=== PATIENT | male | born 1995 | race Caucasian/White ===

== ENCOUNTER 2019-06-27 15:00 | Emergency (ER) | payer OTHER ==
[~2019-06-27] VITALS: Ht 172.7 cm; Wt 79.4 kg
[2019-06-27 15:19] LABS: URINE BILIRUBIN 2+ (Negative); URINE BLOOD NEGATIVE (Negative); URINE CLARITY CLEAR; URINE COLOR DARK YELLOW; URINE GLUCOSE-RANDOM NEGATIVE (Negative); URINE KETONES 3+ (Negative); URINE LEUKOCYTES-REFLEX NEGATIVE (Negative); URINE NITRITE-REFLEX NEGATIVE (Negative); URINE PROTEIN 2+ (Negative)
[2019-06-27 15:21] LABS: ICTOTEST (BILI CONFIRMATORY) Negative (Negative)
[2019-06-27 15:28] LABS: BACTERIA-REFLEX >30 Many /HPF (None Seen); CASTS None Seen /LPF (None Seen); CRYSTALS None Seen /LPF (None Seen); MUCUS >6 Heavy strn/LPF (None Seen); SQUAMOUS 0-3 Few /LPF (0-3); URINE RBC 0-2 Rare /HPF (0-2); URINE WBC-REFLEX 0-5 Rare /HPF (0-5)
[2019-06-27 15:28] LABS: ABSOLUTE BASOPHILS 0.1 thou/uL (0.0-0.2); ABSOLUTE LYMPHOCYTES 1.8 thou/uL (0.8-5.3); ABSOLUTE MONOCYTES 0.7 thou/uL (0.0-1.2); ABSOLUTE NEUTROPHILS 11.5 thou/uL (1.6-8.1); BASOPHILS 0.7 %; HEMATOCRIT 48.2 % (42.0-52.0); HEMOGLOBIN 16.8 gm/dL (14.0-18.0); LYMPHOCYTES 12.6 %; MCH 29.6 pg (26.0-34.0); MCHC 34.9 g/dL (28.0-37.0); MCV 84.7 fL (80.0-100.0); MONOCYTES 4.8 %; MPV 9.3 fl. (7.2-11.1); NUCLEATED RBCS 0 /100WBC; PLATELET COUNT* 288 thou/uL (150-400); POLYS 81.9 %; RBC 5.69 mil/uL (4.50-6.00)
[2019-06-27 15:40] LABS: CALCIUM 9.7 mg/dL (8.5-10.1); CREATININE 1.2 mg/dL (0.6-1.3); POTASSIUM 3.4 mmol/L (3.5-5.1)
[2019-06-27 15:45] LABS: ALBUMIN 5.4 g/dL (3.4-5.0); TOTAL BILIRUBIN 1.3 mg/dL (<0.1-1.0); TOTAL PROTEIN 8.9 g/dL (6.4-8.2)
[2019-06-27] MEDS ORDERED: CIPROFLOXACIN500 M1 PO (17:07)
[2019-06-27] MEDS ORDERED: ZOFRAN ODT4 MG SUBLING (17:07)
[2019-06-27 17:25] VITALS: BP 123/61
== END 2019-06-27 17:25 | disposition home or self-care (01) ==
LOC: M.ERS 15:00
PROVIDERS: Family Medicine
DX: R11.2 Nausea with vomiting, unspecified (principal); R10.10 Upper abdominal pain, unspecified; R10.84 Generalized abdominal pain; F12.90 Cannabis use, unspecified, uncomplicated